=== PATIENT | male | born 1970 | race Caucasian/White ===

== ENCOUNTER 2016-06-10 08:00 | Outpatient (CLI) | payer MEDICAID | END 2016-06-10 08:01 | disposition home or self-care (01) | DX: C91.10 Chronic lymphocytic leukemia of B-cell type not having achieved remission (principal) ==

== ENCOUNTER 2016-06-12 07:47 | Outpatient (CLI) | END 2016-06-12 07:48 | disposition home or self-care (01) ==

== ENCOUNTER 2016-10-13 07:36 | Outpatient (CLI) | payer MEDICAID | END 2016-10-13 07:37 | disposition home or self-care (01) | DX: C91.10 Chronic lymphocytic leukemia of B-cell type not having achieved remission (principal) ==

== ENCOUNTER 2017-03-30 07:35 | Outpatient (CLI) | payer MEDICAID ==
[2017-03-30 13:02] LABS: BASOPHILS # (AUTO) 0.1 10^3/uL (0.0-0.1); BASOPHILS % (AUTO) 0.2 %; EOSINOPHILS # (AUTO) 0.4 10^3/uL (0.0-0.7); EOSINOPHILS % (AUTO) 1.1 %; HCT - HEMATOCRIT 47.2 % (42.0-52.0); HGB - HEMOGLOBIN 15.5 g/dL (14.0-18.0); LYMPHOCYTES # (AUTO) 25.5 10^3/uL (1.5-3.5); LYMPHOCYTES % (AUTO) 77.5 %; MEAN CORPUSCULAR HEMOGLOBIN 30.5 pg (27.0-31.0); MEAN CORPUSCULAR HGB CONC 32.8 g/dL (32.0-36.0); MEAN CORPUSCULAR VOLUME 93.1 fL (80.0-94.0); MEAN PLATELET VOLUME 8.7 fL (7.4-11.4); MONOCYTES # (AUTO) 0.9 10^3/uL (0.0-1.0); MONOCYTES % (AUTO) 2.6 %; NEUTROPHILS # (AUTO) 6.1 10^3/uL (1.5-6.6); NEUTROPHILS % (AUTO) 18.6 %; NUCLEATED RED BLOOD CELLS AUTO 0.1 /100WBC; RED BLOOD COUNT 5.07 10^6/uL (4.70-6.10); RED CELL DISTRIBUTION WIDTH 13.8 % (12.0-15.0); UNCORRECTED WHITE BLOOD COUNT 32.9 x10^3/uL; WHITE BLOOD COUNT 32.9 x10^3/uL (4.8-10.8)
[2017-03-30 13:54] LABS: ALBUMIN/GLOBULIN RATIO 1.9 (1.0-2.2); BILIRUBIN,TOTAL 0.6 mg/dL (0.2-1.0); CALCIUM 9.4 mg/dL (8.5-10.3); POTASSIUM 4.4 mmol/L (3.5-5.0)
[2017-03-30 13:57] LABS: PLATELET ESTIMATE, MANUAL NORMAL (130-450,000) (NORMAL); PLATELET MORPHOLOGY NORMAL APPEARANCE (NORMAL)
[2017-03-30 13:58] LABS: WBC MORPHOLOGY (MULTIPLE) 2+ SMUDGE CELLS (NORMAL)
== END 2017-03-30 07:36 | disposition home or self-care (01) ==
LOC: LAB.N 07:35
DX: C91.10 Chronic lymphocytic leukemia of B-cell type not having achieved remission (principal)
CPT/HCPCS: 36415; 80053; 83615; 85025; 85651

== ENCOUNTER 2019-12-08 22:47 | Outpatient (CLI) | payer MEDICAID | END 2019-12-08 23:59 | disposition critical access hospital (66) | LOC: EMS 22:47 | PROVIDERS: ATTEND Surgery | DX: R06.02 Shortness of breath (principal); R50.9 Fever, unspecified | CPT/HCPCS: A0425; A0427; A0999 ==

== ENCOUNTER 2019-12-08 23:08 | Emergency (ER) | payer MEDICAID ==
[2019-12-08] MEDS ORDERED: ADENOSINE 6 MG/2 ML VIAL IVP STA (23:20)
[2019-12-08] MEDS ORDERED: SODIUM CHLORIDE 0.9% 1,000 ML IV STA (23:20)
[2019-12-08] MEDS ORDERED: IBUPROFEN 800 MG TABLET PO STA (23:22)
[2019-12-08] MEDS ORDERED: ACETAMINOPHEN 325 MG TABLET PO STA (23:22)
--- NOTE | 2019-12-08 23:23 | ED Physician Documentation ---
History of Present Illness - Stated complaint Stated Complaint: RESP. DISTRESS - History obtained from History obtained from: Patient, Family, EMS - Additonal information Additional information: Patient comes emergency department complaining of difficulty breathing for the last 3 days. 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 Patient also has a history of CLL and patient's mother states that he has a nodule on his thyroid which is also thought to be cancerous. The patient is not a smoker. He is not known to have any DVTs, but did have a bone graft taken from his right lower extremity and mother states that the patient has had bilateral edema. Patient is currently receiving his cancer care from Dr. Reardon at [facility]. Medics report that they noted the patient to be satting at 89% on room air when they picked him up, but he has been on a nonrebreather in route and has been 100%. Patient was also found to be febrile at 101. He was according to medics also found to have a heart rate in the 180s. Patient denies any history of any heart problems previously. No CP. No NV. No other complaints at this time. Review of Systems Ten Systems: 10 systems reviewed and negative Constitutional: reports: Fever, Fatigue Eyes: reports: Reviewed and negative Ears: reports: Reviewed and negative Nose: reports: Reviewed and negative Throat: reports: Reviewed and negative Cardiac: reports: Other (tachycardia) Respiratory: reports: Dyspnea GI: reports: Reviewed and negative : reports: Reviewed and negative Skin: reports: Reviewed and negative Musculoskeletal: reports: Reviewed and negative Neurologic: reports: Reviewed and negative Psychiatric: reports: Reviewed and negative Endocrine: reports: Reviewed and negative Immunocompromised: reports: Reviewed and negative PD PAST MEDICAL HISTORY - Past Surgical History Past Surgical History: No - Present Medications Home Medications: Ambulatory Orders Medication Instructions Recorded Confirmed oxyCODONE [Roxicodone] 10 mg PO Q6H 12/09/19 12/09/19 - Allergies Allergies/Adverse Reactions: Allergies Allergy/AdvReac Type Severity Reaction Status Date / Time No Known Drug Allergies Allergy Verified 12/08/19 23:22 - Social History Does the pt smoke?: Yes Smoking Status: Current every day smoker Does the pt drink ETOH?: Yes - Immunizations Immunizations are current?: Yes PD ED PE NORMAL - Vitals Vital signs reviewed: Yes - General General: Alert and oriented X 3, Other (Thin, chronically ill-appearing pt who appears anxious, and in moderate respiratory distress.) - HEENT HEENT: Atraumatic, PERRL, EOMI, Moist mucous membranes ( ) - Neck Neck: Supple, no meningeal sign - Cardiac Cardiac: No murmur, Other (Regular, extremely tachycardic.) - Respiratory Respiratory: Other (Moderate respiratory distress, tachypneic. Bilateral basilar crackles.) - Abdomen Abdomen: Soft, Non tender, Non distended - Back Back: No CVA TTP - Derm Derm: Warm and dry, No rash, Other (pale) - Extremities Extremities: No deformity, No calf tenderness / cord, Other (mild LE edema bilaterally.) - Neuro Neuro: Alert and oriented X 3, time clock inspector 2-12 intact, No motor deficit, No sensory deficit, Normal speech - Psych Psych: Normal mood, Normal affect Results - Vitals Vitals: Oxygen O2 Source Simple Mask Oxygen Flow Rate 15 - EKG (time done) 2317 Rate: Rate (enter#) (193) Rhythm: SVT [place]: Normal Intervals: Normal CT QRS: Normal Ischemia: Normal ST segments, Non specific changes Compare to prior EKG: Old EKG unavailable Computer interpretation: Agree with computer - Labs Labs: Microbiology 12/08/19 23:25 Blood Culture - Final Blood Staphylococcus Epidermidis 12/09/19 00:40 Blood Culture - Final Blood NO GROWTH AFTER 5 DAYS Laboratory Tests 12/08/19 12/08/19 12/08/19 23:25 23:25 23:25 WBC 87.1 H* RBC 3.51 L Hgb 8.6 L Hct 28.6 L MCV 81.5 MCH 24.5 L MCHC 30.1 L RDW 16.2 H Plt Count 454 H MPV 9.1 Neut # (Auto) 22.9 H Lymph # (Auto) 61.1 H [place] # (Auto) 1.6 H Eos # (Auto) 0.2 Baso # (Auto) 0.1 Absolute Nucleated RBC 0.00 Nucleated RBC % 0.0 Manual Slide Review Indicated Platelet Estimate INCREASED (>450,000) Platelet Morphology NORMAL APPEARANCE RBC Morph Micro Appear NORMAL APPEARANCE PT 16.5 H INR 1.5 H Bld Gas Analysis Time Sample Site ABG pH ABG pCO2 ABG pO2 ABG HCO3 ABG Total CO2 ABG O2 Saturation ABG Base Excess [place]aza Test O2 Delivery Device FiO2 Sodium 128 L Potassium 4.1 Chloride 93 L Carbon Dioxide 24 Anion Gap 11.0 BUN 16 Creatinine 0.4 L Estimated GFR (MDRD) 228 Glucose 111 H Lactic Acid Calcium 8.4 L Total Bilirubin 0.3 AST 28 ALT 37 Alkaline Phosphatase 241 H Total Creatine Kinase Troponin I High Sens B-Natriuretic Peptide Total Protein 5.7 L Albumin 2.2 L Globulin 3.5 Albumin/Globulin Ratio 0.6 L Lipase 21 L TSH Urine Color Urine Clarity Urine pH Ur Specific [place] Urine Protein Urine Glucose (UA) Urine Ketones Urine Occult Blood Urine Nitrite Urine Bilirubin Urine Urobilinogen Ur Leukocyte Esterase Ur Microscopic Review Urine Culture Comments Coronavirus (PCR) Influenza A (Rapid) Influenza B (Rapid) 12/08/19 12/08/19 12/08/19 23:25 23:25 23:25 WBC RBC Hgb Hct MCV MCH MCHC RDW Plt Count MPV Neut # (Auto) Lymph # (Auto) [place] # (Auto) Eos # (Auto) Baso # (Auto) Absolute Nucleated RBC Nucleated RBC % Manual Slide Review Platelet Estimate Platelet Morphology RBC Morph Micro Appear PT INR Bld Gas Analysis Time Sample Site ABG pH ABG pCO2 ABG pO2 ABG HCO3 ABG Total CO2 ABG O2 Saturation ABG Base Excess [place]aza Test O2 Delivery Device FiO2 Sodium Potassium Chloride Carbon Dioxide Anion Gap BUN Creatinine Estimated GFR (MDRD) Glucose Lactic Acid 1.2 Calcium Total Bilirubin AST ALT Alkaline Phosphatase Total Creatine Kinase Troponin I High Sens B-Natriuretic Peptide 232 H Total Protein Albumin Globulin Albumin/Globulin Ratio Lipase TSH 1.05 Urine Color Urine Clarity Urine pH Ur Specific [place] Urine Protein Urine Glucose (UA) Urine Ketones Urine Occult Blood Urine Nitrite Urine Bilirubin Urine Urobilinogen Ur Leukocyte Esterase Ur Microscopic Review Urine Culture Comments Coronavirus (PCR) Influenza A (Rapid) Influenza B (Rapid) 12/08/19 12/08/19 12/08/19 23:25 23:25 23:25 WBC RBC Hgb Hct MCV MCH MCHC RDW Plt Count MPV Neut # (Auto) Lymph # (Auto) [place] # (Auto) Eos # (Auto) Baso # (Auto) Absolute Nucleated RBC Nucleated RBC % Manual Slide Review Platelet Estimate Platelet Morphology RBC Morph Micro Appear PT INR Bld Gas Analysis Time 2325 Sample Site LEFT RADIAL ABG pH 7.56 H ABG pCO2 32 L ABG pO2 75 L ABG HCO3 28.1 H ABG Total CO2 29.1 H ABG O2 Saturation 96 ABG Base Excess 5.8 H Raza Test POSITIVE O2 Delivery Device NON REBREATHER MASK FiO2 100.00 Sodium Potassium Chloride Carbon Dioxide Anion Gap BUN Creatinine Estimated GFR (MDRD) Glucose Lactic Acid Calcium Total Bilirubin AST ALT Alkaline Phosphatase Total Creatine Kinase 24 Troponin I High Sens 27.8 H* B-Natriuretic Peptide Total Protein Albumin Globulin Albumin/Globulin Ratio Lipase TSH Urine Color Urine Clarity Urine pH Ur Specific [place] Urine Protein Urine Glucose (UA) Urine Ketones Urine Occult Blood Urine Nitrite Urine Bilirubin Urine Urobilinogen Ur Leukocyte Esterase Ur Microscopic Review Urine Culture Comments Coronavirus (PCR) Influenza A (Rapid) Influenza B (Rapid) 12/08/19 12/09/19 12/09/19 23:40 00:15 00:43 WBC RBC Hgb Hct MCV MCH MCHC RDW Plt Count MPV Neut # (Auto) Lymph # (Auto) [place] # (Auto) Eos # (Auto) Baso # (Auto) Absolute Nucleated RBC Nucleated RBC % Manual Slide Review Platelet Estimate Platelet Morphology RBC Morph Micro Appear PT INR Bld Gas Analysis Time Sample Site ABG pH ABG pCO2 ABG pO2 ABG HCO3 ABG Total CO2 ABG O2 Saturation ABG Base Excess [place] Test O2 Delivery Device FiO2 Sodium Potassium Chloride Carbon Dioxide Anion Gap BUN Creatinine Estimated GFR (MDRD) Glucose Lactic Acid Calcium Total Bilirubin AST ALT Alkaline Phosphatase Total Creatine Kinase Troponin I High Sens B-Natriuretic Peptide Total Protein Albumin Globulin Albumin/Globulin Ratio Lipase TSH Urine Color YELLOW Urine Clarity CLEAR Urine pH 7.5 Ur Specific [place] 1.015 Urine Protein NEGATIVE Urine Glucose (UA) NEGATIVE Urine Ketones NEGATIVE Urine Occult Blood NEGATIVE Urine Nitrite NEGATIVE Urine Bilirubin NEGATIVE Urine Urobilinogen 0.2 (NORMAL) Ur Leukocyte Esterase NEGATIVE Ur Microscopic Review NOT INDICATED Urine Culture Comments NOT INDICATED Coronavirus (PCR) NEGATIVE Influenza A (Rapid) Negative Influenza B (Rapid) Negative - Rads (name of study) CTA thorax Radiology: Prelim report reviewed, Final report received, EMP read indepedently, See rad report CXR Radiology: Final report received, EMP read indepedently, See rad report (Bilateral infiltrates) LE US Radiology: Prelim report reviewed, See rad report (DVT.) PD MEDICAL DECISION MAKING - ED course Complexity details: reviewed old records, reviewed results, re-evaluated patient, considered differential, d/w patient, d/w organizational effectiveness consultant ED course: The pt was evaluated immediately by myself upon arrival in the ED. The pt's blood pressure was fluctuating between the low 100's and mid-90's systolic. He was started on IV fluid boluses. The pt was hypoxic, and in significant respiratory distress, and was initially placed on BiPAP, with improvement in work of breathing. EKG and monitor showed a regular, narrow-complex rhythm, consistent with SVT. The pt's HR was very high, in the 180's, and I felt that this was likely contributing significantly to his sense of dyspnea, and possibly, to his borderline blood pressure, also, although the pt was very thin, and I suspected his blood pressure could very well be near these levels at baseline. The pt was given a dose of adenosine 6 mg, which did initially slow his HR. However, within 10 minutes, his HR began to creep back up, and ultimately, returned to the 180's. During this time, the pt had been in the midst of lab draw and CXR. He had also been treated for his fever, and given a small dose of Ativan, as he was quite anxious upon arrival. The pt had had a borderline blood pressure, but after even the small dose of Ativan, he became hypotensive. He was given a second liter of IV fluid. The pt was feeling better after some time on BiPAP, and requested it be removed. The pt maintained an O2 sat in the low 90's, and did not return to his initial state of dyspnea after the Ativan. The pt had stated very clearly his wish to be DNR with limited interventions, and declined cardioversion for his unstable tachyarrhythmia. I could not use cardizem, as the pt was hypotensive. The adenosine had been successful in converting him the first time, but the effects had not been long-lasting. It was the only option at this point, however, so once the pt's blood pressure had returned to the 90's systolic, I did give the pt another dose of 6 mg adenosine. Once again, the conversion was successful, and this time, rate control was sustained, with normal sinus rhythm with occasional PACs on the monitor. The pt's labs showed a significantly elevated troponin, and CXR showed pneumonia. His WBC count was 87, and his lactate was normal. Covid pending at time of dispo. INfluenza negative. LE US final reading was not done by radiologist until later in the morning, after the pt had been transferred. However, preliminary interpretation by tech was suspicious for L DVT. CTA showed no PE. Pt was treated with abx for his pneumonia. I felt the pt should be transferred to [facility], where his oncologist is, and where he could be seen by cardiology, regarding his SVT. I spoke with Dr. Mitchell, who was sexton helper for hospitalist service there, and after some discussion, he did agree to accept the pt in transfer. Pt is agreeable to the plan. His mother has been present throughout his stay, and is also aware of the plan. - Critical Care Time(min): 120 Comments: Critical care management was necessary, due to high probability of imminent or life-threatening deterioration, due to hypotension, unstable tachyarrhythmia, hypoxia/hypoxemia secondary to pneumonia, and acute SD. All of the above conditions required my direct attention, intervention, and personal management. Time Includes: Direct patient care, Review records, Reassess patient, Document care, Coordinate care, Medical consult, Family consult for tx dec, See progress note Data interpretation: Labs, Pulse ox, ABG, CXR, Cardiac output, See progress note Procedures included in critical care time: Ventilator mgmt, See progress note Departure - Departure Disposition: 02 Transfer Acute Care Hosp Clinical Impression: SVT (supraventricular tachycardia), CLL (chronic lymphocytic leukemia), NSTEMI (non-ST elevated myocardial infarction) Pneumonia Qualifiers: Pneumonia type: due to unspecified organism Laterality: bilateral Lung location: upper lobe of lung Qualified Code(s): J18.9 - Pneumonia, unspecified organism Respiratory failure Qualifiers: Chronicity: acute on chronic Respiratory failure complication: hypoxia Qualified Code(s): J96.21 - Acute and chronic respiratory failure with hypoxia Lung cancer Qualifiers: Laterality: unspecified laterality Lung location: unspecified part of lung Qualified Code(s): C34.90 - Malignant neoplasm of unspecified part of unspecified bronchus or lung DVT (deep venous thrombosis) Qualifiers: DVT location: lower extremity Affected thrombotic vein of extremity: unspecified vein of extremity Chronicity: acute Laterality: left Qualified Code(s): I82.402 - Acute embolism and thrombosis of unspecified deep veins of left lower extremity Condition: Critical Discharge Date/Time: 12/09/19 05:27
[2019-12-08 23:33] LABS: ABG BASE EXCESS 5.8 mmol/L (-2.0-3.0); ABG HCO3 28.1 mmol/L (22.0-26.0); ABG OXYGEN SATURATION 96 % (94-98); ABG PCO2 32 mmHg (34-45); ABG PH 7.56 (7.35-7.45); ABG PO2 75 mmHg (80-100); ABG TCO2 29.1 MMOL/L (21.0-29.0); ALLEN TEST POSITIVE
[2019-12-08 23:37] LABS: BASOPHILS # (AUTO) 0.1 10^3/uL (0.0-0.1); BASOPHILS % (AUTO) 0.1 %; EOSINOPHILS # (AUTO) 0.2 10^3/uL (0.0-0.7); EOSINOPHILS % (AUTO) 0.3 %; HGB - HEMOGLOBIN 8.6 g/dL (14.0-18.0); LYMPHOCYTES # (AUTO) 61.1 10^3/uL (1.5-3.5); LYMPHOCYTES % (AUTO) 70.2 %; MEAN CORPUSCULAR HEMOGLOBIN 24.5 pg (27.0-31.0); MEAN CORPUSCULAR HGB CONC 30.1 g/dL (32.0-36.0); MEAN CORPUSCULAR VOLUME 81.5 fL (80.0-94.0); MEAN PLATELET VOLUME 9.1 fL (7.4-11.4); MONOCYTES # (AUTO) 1.6 10^3/uL (0.0-1.0); MONOCYTES % (AUTO) 1.9 %; NEUTROPHILS # (AUTO) 22.9 10^3/uL (1.5-6.6); NEUTROPHILS % (AUTO) 26.1 %; PLT - PLATELET COUNT 454 10^3/uL (130-450); RED BLOOD COUNT 3.51 10^6/uL (4.70-6.10); RED CELL DISTRIBUTION WIDTH 16.2 % (12.0-15.0)
[2019-12-08 23:40] LABS: WHITE BLOOD COUNT 87.1 x10^3/uL (4.8-10.8)
[2019-12-08 23:42] LABS: INR 1.5 (0.8-1.2); PT - PROTHROMBIN TIME 16.5 secs (9.9-12.6)
[2019-12-08] MEDS ORDERED: KETOROLAC 30 MG/ML VIAL IVP STA (23:46)
[2019-12-08] MEDS ORDERED: ACETAMINOPHEN 1,000 MG/100 ML 100 ML IV ONE (23:46)
[2019-12-08] MEDS ORDERED: LORazepam 2 MG/ML VIAL IVP STA (23:47)
[2019-12-08 23:49] LABS: ALBUMIN 2.2 g/dL (3.2-5.5); ALBUMIN/GLOBULIN RATIO 0.6 (1.0-2.2); BILIRUBIN,TOTAL 0.3 mg/dL (0.2-1.0); CALCIUM 8.4 mg/dL (8.5-10.3); CREATININE 0.4 mg/dL (0.6-1.2); TOTAL PROTEIN 5.7 g/dL (6.7-8.2)
[2019-12-09 00:02] LABS: PLATELET ESTIMATE, MANUAL INCREASED (>450,000) (NORMAL); PLATELET MORPHOLOGY NORMAL APPEARANCE (NORMAL); RBC MORPHOLOGY (MULTIPLE) NORMAL APPEARANCE (NORMAL)
[2019-12-09 00:26] LABS: BILIRUBIN,URINE NEGATIVE (NEGATIVE); GLUCOSE, URINE (UA) NEGATIVE (NEGATIVE); KETONES,URINE (UA) NEGATIVE (NEGATIVE); LEUKOCYTE ESTERASE, URINE NEGATIVE (NEGATIVE); NITRITE,URINE NEGATIVE (NEGATIVE); OCCULT BLOOD,URINE NEGATIVE (NEGATIVE); PH,URINE 7.5 PH (5.0-7.5); PROTEIN,URINE NEGATIVE (NEGATIVE); UROBILINOGEN,URINE 0.2 (NORMAL) E.U./dL (NORMAL)
[2019-12-09 00:27] LABS: CLARITY,URINE CLEAR (CLEAR)
[2019-12-09] MEDS ORDERED: AZITHROMYCIN INJ 500 MG in SODIUM CHLORIDE 0.9% 250 ML IV STA (00:36)
[2019-12-09] MEDS ORDERED: cefTRIAXone 2 GM in SODIUM CHLORIDE 0.9% MINIBAG 100 ML IV STA (00:36)
[2019-12-09] MEDS ORDERED: IOVERSOL 320 100 ML VIAL IVP ONE ×2 (00:45→01:30)
[2019-12-09] MEDS ORDERED: LORazepam 2 MG/ML VIAL IVP STA (01:53)
[2019-12-09] MEDS ORDERED: ADENOSINE 6 MG/2 ML VIAL IVP STA (01:54)
[2019-12-09] MEDS ORDERED: SODIUM CHLORIDE 0.9% 1,000 ML IV STA (04:04)
[2019-12-09 05:27] VITALS: BP 98/80
--- NOTE | 2019-12-09 09:27 | XRAY Report ---
PROCEDURE: Chest 1 View X-Ray INDICATIONS: chest pain TECHNIQUE: One view of the chest was acquired. COMPARISON: Chest x-ray 04/26/2011 FINDINGS: Surgical changes and devices: None. Lungs and pleura: Patchy areas of opacity are present within the lungs bilaterally particularly withi n the right lower lobe. There is right costophrenic angle blunting. Opacification is noted at the rig ht apex. Mediastinum: Mediastinal contours appear normal. Heart size is normal. Bones and chest wall: No suspicious bony lesions. Overlying soft tissues appear unremarkable. IMPRESSION: 1. Bilateral pulmonary infiltrates, right greater than left suggestive of pneumonia. 2. Mild right effusion. 3. Apical opacity which can represent scarring, pleural fluid or mass lesion. Recommend continued int erval follow-up to document resolution. The above findings are concordant with preliminary report. Reviewed by: Michelle Daniels MD on 12/09/2019 9:25 AM PDT Approved by: Michelle Daniels MD on 12/09/2019 9:25 AM PDT Station ID: [id number]
--- NOTE | 2019-12-09 09:31 | Ultrasound Report ---
PROCEDURE: Duplex Ext Veins Bilateral INDICATIONS: MARGE WILLIS TECHNIQUE: Real-time imaging, as well as color and pulse Doppler interrogation, were performed of the deep veins of both legs from the inguinal ligament to the popliteal fossa. COMPARISON: None FINDINGS: Intraluminal thrombus with incomplete compressibility is identified within the left profund a femoris vein. It is located approximately 1.5 cm from the bifurcation. The remaining deep venous ve ins are compressible without evidence of thrombosis. No popliteal cyst. IMPRESSION: Deep venous thrombosis within the left profunda vein as above. The above findings are concordant with preliminary report. Reviewed by: Michelle Daniels MD on 12/09/2019 9:29 AM PDT Approved by: Michelle Daniels MD on 12/09/2019 9:29 AM PDT Station ID: [id number]
--- NOTE | 2019-12-09 09:41 | CT Report ---
PROCEDURE: ANGIO CHEST W/WO INDICATIONS: respiratory distress, cancer, poss PE CONTRAST: IV CONTRAST: Optiray 320 ml: 80 PO CONTRAST: *NO PO CONTRAST TECHNIQUE: After the administration of intravenous contrast, 2 mm thick sections acquired from the pulmonary api blanka to the posterior costophrenic angles. 3-dimensional maximum intensity projection (MIP) coronal a nd sagittal reformats were then acquired through the thorax. For radiation dose reduction, the follow ing was used: automated exposure control, adjustment of mA and/or kV according to patient size. COMPARISON: Chest x-ray 12/08/2019 FINDINGS: Image quality: Excellent. Pulmonary arteries: Pulmonary arteries are normal in size, and demonstrate no intraluminal filling d efects to suggest central pulmonary embolism. Lungs and pleura: There are patchy and confluent areas of opacities within the lungs bilaterally, rig ht greater than left. Masslike lesion is present in the right upper lobe measuring approximately 4.6 cm AP by 6.5 cm transverse. This becomes confluent with a right hilar mass measuring 4.6 cm AP by 3.4 cm transverse. Small areas of fluid and air are noted within the right upper lobe mass. Areas of lef t-sided nodular opacity are present the largest in the lingular region measuring 13 mm on series 6 im age 159. Mild to moderate right effusion is present. While no definitive endobronchial lesion is iden tified, the right mainstem bronchus becomes markedly narrowed traversing the right hilar mass. Scatte red areas of groundglass opacity are noted, as well as areas of intralobular septal thickening. Mediastinum: Heart size is normal, without pericardial effusion. Confluent areas of soft tissue dens ity, poorly defined are present within the mediastinum with a 4.3 cm soft tissue mass at the subcarin al region. Thoracic aorta is normal in caliber and enhancement. Esophagus is normal in caliber, with out hiatal hernia. Bones and chest wall: No suspicious bony lesions. Ribs and thoracic spine appear intact throughout. The thyroid is normal. No axillary or supraclavicular adenopathy. Abdomen: Nonobstructive left renal calculus is present. Partially visualized hyperdensity measuring approximately 10 mm is present along the posterior aspect of the right kidney. Visualized upper abdom inal solid organs appear normal in the early arterial phase of enhancement. IMPRESSION: 1. No pulmonary embolism. 2. Extensive mediastinal and hilar adenopathy including a right hilar mass which becomes confluent wi th a masslike consolidation in the right upper lobe as above. Bilateral areas of nodular opacity are present as well as moderate right effusion. Overall appearance is most concerning for malignancy with superimposed postobstructive pneumonia and/or atelectasis. Presence of air and fluid within the mass could represent necrosis or abscess. 3. 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 4. Nonobstructing left renal calculus. 5. Hyperdensity along the posterior right kidney possibly representing hyperdense cyst. Further evalu ation with ultrasound may be obtained. 6. Groundglass opacities can be reflective of infection/inflammation or underlying edema. The above findings are concordant with preliminary report. Reviewed by: Michlele Daniels MD on 12/09/2019 9:40 AM PDT Approved by: Michelle Daniels MD on 12/09/2019 9:40 AM PDT Station ID: [id number]
== END 2019-12-09 05:27 | disposition short-term general hospital (02) ==
LOC: EDUNIT# → EDBD → ED 23:08
DX: I47.1 Supraventricular tachycardia (principal); I21.4 Non-ST elevation (NSTEMI) myocardial infarction; J96.01 Acute respiratory failure with hypoxia; J18.9 Pneumonia, unspecified organism; I82.402 Acute embolism and thrombosis of unspecified deep veins of left lower extremity; I10 Essential (primary) hypertension; I95.9 Hypotension, unspecified; C34.90 Malignant neoplasm of unspecified part of unspecified bronchus or lung; C91.10 Chronic lymphocytic leukemia of B-cell type not having achieved remission; Z66 Do not resuscitate
CPT/HCPCS: 36415; 36600; 71045; 71275; 80053; 81003; 81599; 82550; 82803; 83605; 83690; 83880; 84443; 84484; 85025; 85610; 87040; 87077; 87181; 87275; 87276; 93005; 93970; 96361; 96365; 96367; 96368; 96375; 96376; 99285; A9270; J0131; J0153; J2060; Q9967; 81001; 87086